=== PATIENT | female | born 1985 | race Caucasian/White ===

== ENCOUNTER → 2016-12-16 | Outpatient (CLI) | payer BC | END | disposition home or self-care (01) | LOC: C.PATHSPEC 17:07 | PROVIDERS: ATTEND Podiatrist Primary Podiatric Medicine | DX: B07.9 Viral wart, unspecified (principal) ==

== ENCOUNTER → 2017-11-15 | Outpatient (CLI) | payer OTHER ==
--- NOTE | 2017-11-16 06:25 | PAP/PSG TECHNICIAN REPORT ---
[facility] Soaker Hides Polysomnogram Report Study name: None Report date: 11/16/2017 Study date: 11/15/2017 Referring Physician: DR. HEDRICK Name: SKIP SHUKLA Interpreting Physician: Kenneth Hedrick M.D. Date of : 1985 Soaker Hides: HOMERO Macedo. Sex: Female Age: 32 Study Type: PSG Weight: 206 lbs 15 in Height: 32 years, Height 5' 4" Neck Circum: BMI: 35.36 Medications: CELEXA, MICROGESTIN Patient History 32 yr-old female here for a baseline/modified split study. She is to be placed on CPAP if her AHI exceeds 5. She has a history of snoring, witnessed apneas, waking up with a gasping sensation, and daytime sleepiness. Her [place] scale is 14. The test was started on room air. ETCO2 testing was not utilized during this study. Room 3 Parameters Monitored NPSG: E1-M2, E2-M1, Fp1-M2, Fp2-M1, F3-M2, F4-M2, F4-M1, C3-M2, C4-M2, C4-M1, O1-M2, O2-M2, O2-M1, T3-M2, T4-M1, P3-M2, P4-M1, CHIN1, CHIN2, HR, EKG, Legs, PFLOW, SNOR, FLOW, CFLOW, Tidal Volume, THOR, ABDO, SpO2, PLTH, CPRESS, ETCO2 Wave, ETCO2, pH Sleep Architecture Sleep Stages Time at Lights Off 9:39:15 PM STAGES Time (min.) TST (%) Time at Lights On 5:29:45 AM Wake 61.0 -- Total Recording Time (TRT) 470.50 min. N1 70.5 17 Total Sleep Period (TSP) 451.0 min. N2 246.5 60 Total Sleep Time (TST) 409.5min. N3 24.5 6 Awake Time 61.0 min. REM 68.0 17 Wake after Sleep Onset 45.5 min. Sleep Efficiency (SE) 87 % Sleep Onset Latency (ROBBIN) 15.5 min. Number of Stage 1 Shifts None Awakenings 24 Stage Changes 116 Number of REM periods 2 REM 68.0 17 REM Latency 194.5 min. NREM 341.5 83 Body Position Analysis Supine Right Left Side Prone Vertical Total Sleep Time (min.) 350.1 104.5 0.0 104.50 0.0 0.0 Total Sleep Time (%) 74% 26% 0% 26 0% N/A% Total Sleep Time REM (min.) 68.0 0.0 0.0 None 0.0 0.0 Total Sleep Time NREM (min.) 237.0 104.5 0.0 None 0.0 0.0 Intermittent Wake (min.) 45.1 15.9 0.0 None 0.0 0.0 Total Sleep Period (%) 73% None None None None None Arousals Myoclonus (PLM) * Events Count Index Events Count Index Spontaneous 65 10 Events Awake (PLMW) 43 42.3 Respiratory 0 0.0 Events Asleep w/ Arousal (PLMA) 49 7.2 PLM 49 7 Events Asleep w/o Arousal (PLMS) 113 16.6 Snoring 4 1 Total Asleep 162 23.7 Total 118 17 Total 205 26 Respiratory Analysis * CA OA MA CH H RERA Total Count 0 0 0 0 0 0 0 Index 0.0 0.0 0.0 0 0.0 0 0.0 Mean Duration 0.0 0.0 0.0 0.00 0.0 0.0 0.0 Longest Duration 0.0 0.0 0.0 0.00 0.0 0.0 0.0 Respiratory Event Summary Total Supine ~Supine Right Left Prone REM NREM Apneas Count 0 0 0 0 N/A N/A 0 0 Index 0.0 0 0 0.0 N/A N/A 0 0 Hypopneas (4% Desat) Count 0 0 0 0 N/A N/A 0 0 Index 0.0 0.0 0 0.0 N/A N/A 0.0 0.0 Apneas & All Hypopneas Count 0 0 0 0 N/A N/A 0 0 Index 0.0 0 0 0 N/A N/A 0.0 0.0 Respiratory Events (Supervisor Floor Assembly+All Hyp+RERA) Count 0 0 0 0 N/A N/A 0 0 Index 0.0 0 0 0.0 N/A N/A 0.0 0.0 Respiratory Related Arousal Count 0 0 0 0 N/A N/A 0 0 Index 0.0 0 0 0 N/A N/A 0 0 Snoring Analysis Supine Right Left Prone REM NREM Total Snore duration 34.3 min Snores count 1,033 534 N/A N/A 370 1,197 1,567 Snore mean duration 1.3 Sec Snores index 203 307 N/A N/A 326.5 210.3 229.6 TST with snoring (%) 8.4% Desaturation Event Summary: Minimum %SpO2 Event Count Mean/Min/Max Duration(sec.) Desaturation Index % Time In Bed > 90 4 24.0 / 5.8 / 59.8 0.5 99.8 86 - 90 1 59.8 / 59.8 / 59.8 70.2 0.2 81 - 85 0 N/A 0.0 0.0 76 - 80 0 N/A 0.0 0.0 71 - 75 0 N/A 0.0 0.0 66 - 70 0 N/A 0.0 0.0 61 - 65 0 N/A 0.0 0.0 56 - 60 0 N/A 0.0 0.0 51 - 55 0 N/A 0.0 0.0 < 50 0 N/A 0.0 0.0 Total REM NREM Awake <50% 0.0 min. 0.0 min. 0.0 min. 0.0 min. 51 - 60% 0.0 min. 0.0 min. 0.0 min. 0.0 min. 61 - 70% 0.0 min. 0.0 min. 0.0 min. 0.0 min. 71 - 80% 0.1 min. 0.0 min. 0.0 min. 0.1 min. 81 - 90% 0.9 min. 0.0 min. 0.5 min. 0.4 min. 91 - 100% 468.9 min. 68.0 min. 341.0 min. 59.9 min. Average 96 96 96 96 Minimum SpO2 76 92 87 76 Desaturation Event Index 0.5 0.0 0.2 3.0 # Desat. Events below 89% 1 N/A 1 0 Time(%) with Saturation below 89% 0.2 0.0 0.1 0.1 Time(min.) with Saturation below 89% 0.9 0.0 0.4 0.5 Time (mins) REM (mins) NREM (mins) % of TST SpO2 Below 90% 1 N/A N1 0.1 SpO2 Below 88% 0 0 0 0 Heart Rate Analysis Min (bpm) Max (bpm) Average (bpm) Awake 46 113 77 NREM 50 105 74 REM 66 97 80 Overall 50 105 75 Supplemental O2 Values Minimum O2 level: None Value Start Time End Time Soaker Hides Comments Ms. Shukla slept in the right, left, and supine positions. No cardiac arrhythmias were noted. PLMs and arousals from leg movements were noted. Several episodes of bruxism were noted. Snoring was noted and scored as a 1-2 on a scale of 1 through 5. (0=no snoring, 5=snoring loud enough to be heard through a closed door or down the e[address] way). She did not meet specific Split-Night criteria during the diagnostic portion of this study. She did not wake up to use the restroom during the night. Ms. Shukla stated that she slept poorly. The final report will be interpreted and signed by a sleep physician. The completed physician report will then be placed in the patient medical record. Therapy (cm H2O) 0 TIB (min.) 470.5 TST (min.) 409.5 Sleep Onset (min.) 15.5 REM Onset From Sleep (min.) 194.5 Sleep Efficiency % 87 Wakefulness (%) 13 Wakefulness (min.) 61.0 NREM 1 (%) 17 NREM 1 (min.) 70.5 NREM 2 (%) 60 NREM 2 (min.) 246.5 NREM 3 (%) 6 NREM 3 (min.) 24.5 REM (%) 17 REM (min.) 68.0 # Arousals 118 Arousal Index 17 # Snore 1,567 Snore Index 229.6 AHI 0.0 AHI Supine 0 AHI Non-Supine 0 NREM AHI 0.0 REM AHI 0.0 RDI 0.0 # Obstructive Apnea 0 # Central Apnea 0 # Mixed Apnea 0 # Hypopneas 0 RERAs 0 Total Respiratory Events 1 Time Below SpO2 89% (min.) 0.4 Mean NREM SpO2 (%) 96 Mean REM SpO2 (%) 96 Mean Sleep SpO2 (%) 96 Min NREM SpO2 (%) 87 Min REM SpO2 (%) 92 Position Supine (min.) 350.1 Position Non-supine (min.) 104.5 LM Index Sleep 23.7 LM Index NREM 23.2 LM Index REM 26.5 Mean Heart Rate (bpm) 75 Min Heart Rate (bpm) 50
--- NOTE | 2017-11-24 12:48 | POLYSOMNOGRAPH REPORT ---
CLINICAL DATA: A 32-year-old female with a BMI of 35.4, referred by myself and Dr. Porras for evaluation of fatigue, snoring, apneic episodes, and a history of bruxism. Her [place] sleepiness score is 14/24. SLEEP ARCHITECTURE: Total sleep period was 451 minutes. Total sleep time was 409.5 minutes divided between 341.5 minutes of non-REM sleep and 68 minutes of REM sleep. Sleep onset latency was 15.5 minutes. REM latency was 194.5 minutes. Sleep efficiency was 87%. Wake after sleep onset was 45.5 minutes. Sleep consisted of stage N1 17%, stage N2 60%, stage N3 6%, and REM 17%. AROUSAL DATA: One hundred and eighteen arousals were recorded for an index of 17 per hour. Sixty five were spontaneous. Forty nine were due to PLMs. PERIODIC LIMB MOVEMENT DATA: Mildly elevated limb movements during sleep were noted. There were 162 limb movements during sleep noted for an index of 23.7 per hour with arousal index of 7.2 per hour. RESPIRATORY DATA: There was no evidence of sleep apnea seen. The AHI was 0. No respiratory events were recorded. OXIMETRY DATA: No significant hypoxemia was seen. Oxygen jude was 87%. Mean saturation was 96%. ECHOCARDIOGRAM: Heart rates ranged from 50-105 beats per minute. No arrhythmias were noted. COASTAL TUG MATE'S COMMENTS: The patient slept in the right, left, and supine positions. PLMs and arousals from leg movements were noted frequently. There were several episodes of bruxism noted. Snoring was mild, rated 1-2 on a scale of 1-5. IMPRESSION: 1. No evidence of clinically significant sleep apnea/hypopnea. 2. Mild bruxism. 3. Mild periodic limb movement disorder with arousals. RECOMMENDATIONS: 1. The patient should continue to practice good sleep hygiene. 2. Evaluation and treatment for reversible causes of PLMD may be of benefit. 3. The patient may need to see her dentist for an appliance for bruxism/ snoring. MTDD
== END | disposition home or self-care (01) ==
LOC: C.NEUR 21:00
PROVIDERS: ATTEND Internal Medicine Pulmonary Disease
DX: G47.19 Other hypersomnia (principal); R53.83 Other fatigue; R06.83 Snoring; R06.81 Apnea, not elsewhere classified

== ENCOUNTER → 2017-11-24 | Outpatient (CLI) | payer OTHER ==
[2017-11-24 13:13] LABS: BASO % 0.2 %; BASO ABS # 0.02 K/uL (0-0.2); EOS % 0.8 %; EOS ABS # 0.08 K/uL (0-0.5); HEMATOCRIT 40.9 % (37-47); HEMOGLOBIN 13.6 g/dL (12.0-16.0); IG# 0.06 K/uL (0.00-0.02); LYMPH % 25.4 %; LYMPH ABS # 2.56 K/uL (1.2-3.4); MEAN CELL VOLUME 84.3 fL (80-100); MEAN CORPUSCULAR HGB CONC 33.3 g/dl (32-36); MEAN PLATELET VOLUME 10.5 fL (7.4-10.4); MONO % 8.4 %; MONO ABS # 0.85 K/uL (0.11-0.59); NEUT % 64.6 %; PLATELET COUNT 341 K/uL (130-400); RED CELL DISTRIBUTION WIDTH CV 13.4 % (11.5-14.5); RED CELL DISTRIBUTION WIDTH SD 41.4 fL (36.4-46.3); WHITE BLOOD COUNT 10.07 K/uL (4.8-10.8)
[2017-11-24 14:02] LABS: ALBUMIN 3.6 gm/dl (3.4-5.0); ALT/SGPT 46 U/L (12-78); BLOOD UREA NITROGEN 11 mg/dl (7-18); CALCIUM 8.7 mg/dl (8.5-10.1); CARBON DIOXIDE 25 mmol/L (21-32); CREATININE 0.85 mg/dl (0.60-1.20); GLUCOSE 75 mg/dl (70-99); POTASSIUM 3.6 mmol/L (3.5-5.1); SODIUM 137 mmol/L (136-145)
[2017-11-24 14:12] LABS: ALKALINE PHOSPHATASE 95 U/L (45-117); AST/SGOT 41 U/L (15-37); TOTAL PROTEIN 7.7 gm/dl (6.4-8.2)
== END | disposition home or self-care (01) ==
LOC: C.LAB1850 12:04
PROVIDERS: ATTEND Internal Medicine Pulmonary Disease
DX: R06.83 Snoring (principal); G47.19 Other hypersomnia; R53.83 Other fatigue; G47.61 Periodic limb movement disorder

== ENCOUNTER 2018-01-17 18:37 | Emergency (ER) | payer OTHER ==
[~2018-01-17] VITALS: Ht 162.6 cm; Wt 92.4 kg
[2018-01-17 18:44] VITALS: Ht 162.6 cm; Wt 92.4 kg
[2018-01-17] MEDS ORDERED: ONDANSETRON INJ 2 MG/ML 2 ML VIAL IV STA (18:59)
[2018-01-17] MEDS ORDERED: FAMOTIDINE 20MG/5ML IV PUSH IV STA (18:59)
[2018-01-17] MEDS ORDERED: SODIUM CHLORIDE 0.9% 1000ML 1,000 ML IV STA (18:59)
--- NOTE | 2018-01-17 19:25 | EMERGENCY ROOM VISIT NOTE ---
ED Visit Note First contact with patient: 18:47 CHIEF COMPLAINT: Nausea, vomiting, diarrhea, abdominal pain HISTORY OF PRESENTING ILLNESS: This is a 32-year-old female who presents to the emergency department with complaint of nausea, vomiting, diarrhea, abdominal pain that started this morning around 9 AM. Patient states that she was at work she started to feel hot and sweaty, lightheaded, and then quickly developed nausea. She began to vomit and have diarrhea around 11 AM this morning and has been having abdominal cramping that she describes as diffuse, severe, constant, and 7/10. She states that she has vomited approximately 6 times today and has had at least 10 episodes of watery diarrhea. She denies any bloody or black stools or emesis. She has not had any fevers or chills. She denies any known recent sick contacts, denies any recent travel out of the country or antibiotic use in the past several months. She did eat a renée lettuce Caesar salad approximately 36 hours ago, she is unsure of anything else that she has eaten recently that could have caused food poisoning. REVIEW OF SYSTEMS: A complete 10 point review of systems was reviewed with the patient with pertinent positives and negatives as per history of present illness. All else were negative. PAST MEDICAL HISTORY: GERD, anxiety and depression. SOCIAL HISTORY: Lives at home. Denies tobacco use, alcohol or recreational drug use. ALLERGIES: No known allergies PHYSICAL EXAM: CONSTITUTIONAL: Pleasant and cooperative. No acute distress. Mildly dehydrated , but other well appearing and well nourished. HEENT: Normocephalic, atraumatic. Pupils equal, round and reactive to light, EOMI. TMs normal. Pharynx normal. Tacky mucous membranes. NECK: Supple, full active range of motion without discomfort. RESPIRATORY: Clear to auscultation bilaterally with no wheezing, crackles, rhonchi or stridor. Equal expansion bilaterally. CARDIOVASCULAR: Regular rate and rhythm with no murmurs, rubs or gallops. Normal peripheral perfusion. No edema. GASTROINTESTINAL: Soft, mildly tender throughout the abdomen, no pointed area of tenderness and no rebound tenderness or guarding. Nondistended. No palpable masses or HSM. Bowel sounds present in all quadrants. No CVA tenderness MUSCULOSKELETAL: Full range of motion of all joints without discomfort. INTEGUMENTARY: No rash or other significant dermatologic conditions noted. NEUROLOGIC: Alert and oriented X 4 with normal affect. No focal neurologic deficits noted. Normal speech. Normal gait observed. ED COURSE AND MEDICAL DECISION MAKING: CC: Patient presenting with complaint of nausea, vomiting, diarrhea, abdominal pain DIFFERENTIAL DIAGNOSIS: Includes, but not limited to gastroenteritis, food poisoning, gastritis, GERD, peptic ulcer disease, cholecystitis, cholelithiasis , pancreatitis, appendicitis, diverticulitis, colitis, dehydration, electrolyte abnormality, among others. INTERPRETATION OF LABS: Leukocytosis with left shift, no anemia, no significant electrolyte abnormalities, normal renal function, normal liver enzymes and lipase. UA consistent with mild dehydration and appears to be contaminated, not infected. Urine negative. Stool cultures pending. C. difficile assay POSITIVE. IMAGING: ~ rep ct add3] CT ABD/PELVIS IV CONTRAST ONLY CLINICAL HISTORY: Abdominal pain and vomiting COMPARISON STUDY: None. TECHNIQUE: Following the IV administration of 116 mL of Optiray-320, CT scan of the abdomen and pelvis was performed from the lung bases to the proximal femurs. Images are reviewed in the axial, sagittal, and coronal planes. IV contrast was administered without complication. A dose lowering technique was utilized adhering to the principles of ALARA. CT DOSE: 692.46 mGy.cm FINDINGS: Lower chest: The heart is normal in size and configuration, without pericardial effusion. The lung bases and pleural spaces are clear. Liver: The contrast-enhanced liver is normal in size, contour, and attenuation. There is no intrahepatic biliary ductal dilatation. The hepatic veins and portal veins are patent. Gallbladder: Surgically absent Spleen: Normal in size and attenuation. Pancreas: Unremarkable. Adrenal glands: Unremarkable. Kidneys: There is symmetric renal cortical enhancement. The kidneys are normal in size without hydronephrosis. Bowel: There are no transition zones indicate bowel obstruction. The appendix appears normal. There is no acute diverticulitis. Peritoneum: There is no intraperitoneal free air or abdominal ascites. Vasculature: The abdominal aorta is normal in course and caliber. Adenopathy: None. Pelvic viscera: The bladder, and pelvic viscera are unremarkable. Skeletal structures: No destructive osseous lesions are seen. IMPRESSION: 1. No evidence of bowel obstruction. No evidence of free air 2. Normal appendix. No evidence of acute diverticulitis. 3. No evidence of hydronephrosis MEDICATION RECONCILIATION: I attest that I have personally reviewed the patient 's current medication list. INITIAL VITAL SIGNS REVIEW: I reviewed the patient's initial vital signs and interpret them as follows: T: Afebrile; BP: Normotensive; HR: Within normal limits; RR: Within normal limits; Pulse Ox: Within normal limits on room air. Blood pressure screening: The patient was found to have normal blood pressure on screening and does not require follow-up for repeat blood pressure check. SUMMARY: Patient was evaluated at bedside, history and physical exam performed. Patient is alert and oriented, in no acute distress, resting calmly in stretcher. Patient does appear to be mildly dehydrated, but is not tachycardic. Mildly tender to palpation throughout the entire abdomen, no rebound tenderness or guarding. Orders were placed at bedside for labs, UA and urine , IV fluids as a precaution for hydration, IV Zofran for nausea, IV Pepcid for abdominal pain. Patient discussed with Dr. Davis, who agrees with my assessment and plan. Labs reviewed as above, notable for leukocytosis. On reassessment, the patient states that her nausea is improved, but her abdominal pain is not any better and she still does not feel well. I discussed the option of CT imaging, as I cannot rule out significant infectious processes such as appendicitis or diverticulitis, she was agreeable to this plan. She was able to provide a stool sample. Stool cultures and C. difficile assay were ordered. CT reviewed and is unremarkable, no evidence of acute appendicitis, diverticulitis, or bowel obstruction. Serial abdominal exams were performed throughout the patient stay, and at no time did she exhibit an acute abdomen. Stool studies positive for C. difficile. On further exploration with the patient, she does remember being placed on a 10 day course of antibiotics to treat sinus infection 2 months ago. She has no history of C. difficile infections in the past and is not a healthcare worker. Patient reassessed multiple times throughout ED stay, she is feeling improved after IV morphine and fluids, and is now tolerating PO fluids. She has remained stable during her stay. Patient was updated on all results and plan for discharge, she was encouraged to follow closely with her PCP. Rx for oral vancomycin was sent to patient's pharmacy as well as a prescription for Zofran. Patient was educated regarding the medications. Patient was also given strict return precautions should her symptoms worsen, she verbalized understanding. Patient was discharged home in stable condition and ambulatory. Current/Historical Medications Scheduled Control Pills ( Control Pills), 1 TAB PO DAILY Citalopram Hydrobromide (Citalopram), 20 MG PO DAILY Multiple Minerals W/ Vitamins (Citracal Plus), 1 TAB PO DAILY Multiple Vitamins W/ Minerals (Womens One Daily), 1 TAB PO DAILY Omeprazole (Prilosec), 20 MG PO DAILY Ondasetron Odt (Zofran Odt), 4 MG SL Q6H Vancomycin Hcl (Vancomycin), 1 CAP PO QID Allergies Coded Allergies: No Known Allergies (Unverified , 01/17/18) Vital Signs Date Time Temp Pulse Resp B/P (MAP) Pulse Ox O2 Delivery O2 Flow Rate FiO2 01/17/18 20:17 77 18 120/86 99 01/17/18 20:12 74 28 01/17/18 20:07 64 20 01/17/18 19:57 74 18 01/17/18 19:52 72 18 01/17/18 19:47 75 18 01/17/18 19:43 75 01/17/18 19:42 76 21 01/17/18 19:37 83 17 01/17/18 19:32 80 20 01/17/18 18:44 36.5 88 20 116/56 96 Room Air Laboratory Results 01/17/18 19:15 Red Blood Count 5.12, Mean Corpuscular Volume 83.4, Mean Corpuscular Hemoglobin 28.9, Mean Corpuscular Hemoglobin Concent 34.7, Mean Platelet Volume 10.3, Neutrophils (%) (Auto) 87.6, Lymphocytes (%) (Auto) 8.0, Monocytes (%) (Auto) 3.7, Eosinophils (%) (Auto) 0.1, Basophils (%) (Auto) 0.1, Neutrophils # (Auto) 15.32, Lymphocytes # (Auto) 1.40, Monocytes # (Auto) 0.64, Eosinophils # (Auto) 0.02, Basophils # (Auto) 0.02 01/17/18 19:15 Test 01/17/18 19:10 01/17/18 19:15 Urine Color YELLOW Urine Appearance CLOUDY (CLEAR) Urine pH 6.0 (4.5-7.5) Urine Specific [place] 1.029 (1.000-1.030) Urine Protein NEG (NEG) Urine Glucose (UA) NEG (NEG) Urine Ketones 1+ (NEG) Urine Occult Blood NEG (NEG) Urine Nitrite NEG (NEG) Urine Bilirubin NEG (NEG) Urine Urobilinogen NEG (NEG) Urine Leukocyte Esterase TRACE (NEG) Urine WBC (Auto) 10-30 /hpf (0-5) Urine RBC (Auto) 0-4 /hpf (0-4) Urine Hyaline Casts (Auto) 1-5 /lpf (0-5) Urine Epithelial Cells (Auto) >30 /lpf (0-5) Urine Bacteria (Auto) 1+ (NEG) Urine Test NEG (NEG) White Blood Count 17.48 K/uL (4.8-10.8) Red Blood Count 5.12 M/uL (4.2-5.4) Hemoglobin 14.8 g/dL (12.0-16.0) Hematocrit 42.7 % (37-47) Mean Corpuscular Volume 83.4 fL (80-100) Mean Corpuscular Hemoglobin 28.9 pg (25-34) Mean Corpuscular Hemoglobin Concent 34.7 g/dl (32-36) Platelet Count 339 K/uL (130-400) Mean Platelet Volume 10.3 fL (7.4-10.4) Neutrophils (%) (Auto) 87.6 % Lymphocytes (%) (Auto) 8.0 % Monocytes (%) (Auto) 3.7 % Eosinophils (%) (Auto) 0.1 % Basophils (%) (Auto) 0.1 % Neutrophils # (Auto) 15.32 K/uL (1.4-6.5) Lymphocytes # (Auto) 1.40 K/uL (1.2-3.4) Monocytes # (Auto) 0.64 K/uL (0.11-0.59) Eosinophils # (Auto) 0.02 K/uL (0-0.5) Basophils # (Auto) 0.02 K/uL (0-0.2) RDW Standard Deviation 40.8 fL (36.4-46.3) RDW Coefficient of Variation 13.5 % (11.5-14.5) Immature Granulocyte % (Auto) 0.5 % Immature Granulocyte # (Auto) 0.08 K/uL (0.00-0.02) Anion Gap 9.0 mmol/L (3-11) Est Creatinine Clear Calc Drug Dose 99.3 ml/min Estimated GFR () 99.4 Estimated GFR (Non- 85.7 BUN/Creatinine Ratio 11.6 (10-20) Calcium Level 9.2 mg/dl (8.5-10.1) Total Bilirubin 0.7 mg/dl (0.2-1) Direct Bilirubin 0.1 mg/dl (0-0.2) Aspartate Amino Transf (AST/SGOT) 15 U/L (15-37) Alanine Aminotransferase (ALT/SGPT) 18 U/L (12-78) Alkaline Phosphatase 101 U/L (45-117) Total Protein 8.4 gm/dl (6.4-8.2) Albumin 3.8 gm/dl (3.4-5.0) Lipase 83 U/L (73-393) Date/Time Source Procedure Growth Status 01/17/18 20:00 Stool C.difficile Toxin B Gene (PCR) - Final Positive for C. difficile toxin B gene Complete Medications Administered Medications (Trade) Dose Ordered Sig/Ya Route Start Time Stop Time Status Last Admin Dose Admin Sodium Chloride 1,000 ml @ 999 mls/hr Q1H1M STAT IV 01/17/18 18:59 01/17/18 19:59 DC 01/17/18 19:21 999 MLS/HR Ondansetron HCl (Zofran Inj) 4 mg NOW STAT IV 01/17/18 18:59 01/17/18 19:02 DC 01/17/18 19:21 4 MG Famotidine (Pepcid 20mg Iv Push) 20 mg ONE STAT IV 01/17/18 18:59 01/17/18 19:02 DC 01/17/18 19:21 20 MG Morphine Sulfate (MoRPHine SULFATE INJ) 4 mg NOW STAT IV 01/17/18 20:10 01/17/18 20:13 DC 01/17/18 20:37 4 MG Departure Information Impression Primary Impression: C. difficile diarrhea Dispostion Home / Self-Care Condition GOOD Prescriptions Vancomycin Hcl (Vancomycin) 125 Mg Cap 1 CAP PO QID for 10 Days, #40 CAP Prov: Jessica Rod CRNP 01/17/18 Ondasetron Odt (ZOFRAN ODT) 4 Mg Tab 4 MG SL Q6H for Nausea, #10 TAB Prov: Jessica Rod CRNP 01/17/18 Referrals Praveen Brewer M.D. (PCP) Patient Instructions Clostridium Difficile Infec, ED Diarrhea Bacterial, ED Diet Vomiting Diarrhea, [facility] Additional Instructions You have been treated in the Emergency Department for your nausea, vomiting, diarrhea, and abdominal pain. Laboratory results and imaging studies have ruled out any emergent causes for your symptoms which would warrant admission or surgery. Your stool studies tested positive for Clostridium difficile infection. You were prescribed Flagyl to be taken 3 times a day for 10 days. This is an antibiotic the Clostridium difficile infection. DO NOT drink alcohol while you are taking this medication and for at least 3 days after you stop this medication. All antibiotics have the potential to cause diarrhea, you can help to prevent this by eating yogurt daily or taking a daily probiotic. Stop this medication and contact a medical provider if you were to develop any significant adverse side effects including: wheezing, shortness of breath, passing out, vomiting, or a diffuse rash. Always take antibiotics as directed and COMPLETE the ENTIRE course regardless of the improvement of your symptoms. You have been prescribed Zofran to be used as needed for nausea/vomiting. Take as prescribed. For pain control, you can use the following orib-lve-cnhygmn medicines (if >12 yo): - Regular strength (325mg/tab) Tylenol (acetaminophen) 2 tabs every 4-6 hours as needed. Do not exceed 10 tablets in a 24 hour period. Avoid taking more than 3000 mg of Tylenol per day. This includes any other sources of acetaminophen you may take on a regular basis. - Regular strength (200 mg/tab) Advil (ibuprofen) 3 tabs every 6-8 hours as needed. Do not exceed a dose of 2400 mg per day. Drink plenty of fluids to stay well hydrated. Stick with a bland diet until your diarrhea is improving, then slowly advance back to a normal diet. Please follow-up with your Primary Care Provider in the next few days for further evaluation. Return to the emergency department for severe worsening abdominal or back pain, worsening nausea/vomiting, vomiting blood, large amounts of blood in your stool or urine, fevers > 101.5, severe dizziness or passing out, or any other concerns. Work Instructions Return To Work: 5 days
[2018-01-17 19:34] LABS: BASO % 0.1 %; BASO ABS # 0.02 K/uL (0-0.2); EOS % 0.1 %; EOS ABS # 0.02 K/uL (0-0.5); HEMATOCRIT 42.7 % (37-47); HEMOGLOBIN 14.8 g/dL (12.0-16.0); IG# 0.08 K/uL (0.00-0.02); MEAN CELL VOLUME 83.4 fL (80-100); MEAN CORPUSCULAR HEMOGLOBIN 28.9 pg (25-34); MEAN CORPUSCULAR HGB CONC 34.7 g/dl (32-36); MEAN PLATELET VOLUME 10.3 fL (7.4-10.4); MONO % 3.7 %; MONO ABS # 0.64 K/uL (0.11-0.59); NEUT % 87.6 %; NEUT ABS # 15.32 K/uL (1.4-6.5); PLATELET COUNT 339 K/uL (130-400); RED CELL DISTRIBUTION WIDTH CV 13.5 % (11.5-14.5); RED CELL DISTRIBUTION WIDTH SD 40.8 fL (36.4-46.3); WHITE BLOOD COUNT 17.48 K/uL (4.8-10.8)
[2018-01-17 19:53] LABS: ALBUMIN 3.8 gm/dl (3.4-5.0); CALCIUM 9.2 mg/dl (8.5-10.1); CREATININE 0.88 mg/dl (0.60-1.20); POTASSIUM 3.6 mmol/L (3.5-5.1)
[2018-01-17 19:56] LABS: TOTAL PROTEIN 8.4 gm/dl (6.4-8.2)
[2018-01-17] MEDS ORDERED: MoRPHine SULFATE 4 MG/ML 1 ML CARP\\VIAL IV STA (20:10)
[2018-01-17] MEDS ORDERED: OPTIRAY 320 IV PRN (20:15)
--- NOTE | 2018-01-17 20:43 | DIAGNOSTIC IMAGING REPORT ---
CT ABD/PELVIS IV CONTRAST ONLY CLINICAL HISTORY: Abdominal pain and vomiting COMPARISON STUDY: None. TECHNIQUE: Following the IV administration of 116 mL of Optiray-320, CT scan of the abdomen and pelvis was performed from the lung bases to the proximal femurs. Images are reviewed in the axial, sagittal, and coronal planes. IV contrast was administered without complication. A dose lowering technique was utilized adhering to the principles of ALARA. CT DOSE: 692.46 mGy.cm FINDINGS: Lower chest: The heart is normal in size and configuration, without pericardial effusion. The lung bases and pleural spaces are clear. Liver: The contrast-enhanced liver is normal in size, contour, and attenuation. There is no intrahepatic biliary ductal dilatation. The hepatic veins and portal veins are patent. Gallbladder: Surgically absent Spleen: Normal in size and attenuation. Pancreas: Unremarkable. Adrenal glands: Unremarkable. Kidneys: There is symmetric renal cortical enhancement. The kidneys are normal in size without hydronephrosis. Bowel: There are no transition zones indicate bowel obstruction. The appendix appears normal. There is no acute diverticulitis. Peritoneum: There is no intraperitoneal free air or abdominal ascites. Vasculature: The abdominal aorta is normal in course and caliber. Adenopathy: None. Pelvic viscera: The bladder, and pelvic viscera are unremarkable. Skeletal structures: No destructive osseous lesions are seen. IMPRESSION: 1. No evidence of bowel obstruction. No evidence of free air 2. Normal appendix. No evidence of acute diverticulitis. 3. No evidence of hydronephrosis Electronically signed by: Salo Resendiz M.D. 01/17/2018 8:42 PM Dictated Date/Time: 01/17/2018 8:39 PM
[2018-01-17] MEDS ORDERED: CITA-295 PO (20:56)
[2018-01-17] MEDS ORDERED: PRLSR20 PO (20:56)
[2018-01-17] MEDS ORDERED: MULT-663 PO (20:56)
[2018-01-17] MEDS ORDERED: MULT-240 PO (20:56)
[2018-01-17] MEDS ORDERED: BCPILLS PO (20:56)
[2018-01-17] MEDS ORDERED: METRONIDAZOLE 250 MG TAB PO STA (21:31)
[2018-01-17] MEDS ORDERED: ONDANSETRON HOME PACK 4MG OD TAB PO ONE (21:45)
[2018-01-17] MEDS ORDERED: ONDA4TAB10 SL (21:57)
[2018-01-17] MEDS ORDERED: METR-162 PO (21:57)
[2018-01-17] MEDS ORDERED: VANC5CAP PO (22:13)
[2018-01-17 22:32] VITALS: BP 122/79; PULSE 81; TEMP 36.5; O2SAT 99
--- NOTE | 2018-01-19 17:05 | Pharmacy Progress Note ---
ED Pharmacist Culture FollowUp Date of Service: January 19, 2018. Patient's urine culture growing gardnerella-like bacilli + low counts other mixed simone. Patient's chief complaint N/V/D, abdominal pain. (+) C. diff infection. UA >30 epithelial cells. No intervention required as organism unlikely cause for UTI, lack of symptoms/concern for UTI and high epithelial counts.
== END 2018-01-17 22:35 | disposition home or self-care (01) ==
LOC: C.EDB 18:38 → C.EDC 22:35
DX: A04.72 Enterocolitis due to Clostridium difficile, not specified as recurrent (principal); R11.2 Nausea with vomiting, unspecified; K21.9 Gastro-esophageal reflux disease without esophagitis; F41.9 Anxiety disorder, unspecified; F32.9 Major depressive disorder, single episode, unspecified; E86.0 Dehydration; Z79.3 Long term (current) use of hormonal contraceptives; Z79.899 Other long term (current) drug therapy